=== PATIENT | male | born 1980 | race Caucasian/White ===

== ENCOUNTER 2018-02-03 13:08 | Emergency (ER) | payer SELFPAY ==
[~2018-02-03] VITALS: Ht 175.3 cm; Wt 97.7 kg
[~2018-02-03 13:08] MED LIST: MOTRIN 600600 MG/TAB PO
[2018-02-03 13:15] VITALS: BP 153/111; PULSE 77; TEMP 97.9
[2018-02-03] MEDS ORDERED: CEPHALEXIN500 M1 PO (15:24)
[2018-02-03] MEDS ORDERED: NORCO 325 MG-51 TAB PO (15:47)
== END 2018-02-03 16:35 | disposition home or self-care (01) ==
LOC: COL.ER 13:08
DX: S51.012A Laceration without foreign body of left elbow, initial encounter (principal); F17.210 Nicotine dependence, cigarettes, uncomplicated; Z23 Encounter for immunization; V18.4XXA Pedal cycle driver injured in noncollision transport accident in traffic accident, initial encounter; Y93.55 Activity, bike riding

== ENCOUNTER 2019-07-27 18:46 | Emergency (ER) | payer SELFPAY ==
[~2019-07-27] VITALS: Ht 177.8 cm; Wt 86.4 kg
[~2019-07-27 18:46] MED LIST changes: +CEPHALEXIN500 M1 PO; +NORCO 325 MG-51 TAB PO
[2019-07-27 18:49] VITALS: BP 137/91; TEMP 99.5
[2019-07-27 21:34] VITALS: PULSE 87
== END 2019-07-27 21:36 | disposition home or self-care (01) ==
LOC: COL.ER 18:46
DX: S20.211A Contusion of right front wall of thorax, initial encounter (principal); F17.210 Nicotine dependence, cigarettes, uncomplicated; W10.9XXA Fall (on) (from) unspecified stairs and steps, initial encounter
CPT/HCPCS: J1885

== ENCOUNTER 2022-04-19 00:35 | Observation (INO) | payer SELFPAY ==
[~2022-04-19] VITALS: Ht 175.3 cm; Wt 86.2 kg
[2022-04-19 01:11] LABS: BASO % 0.2 % (0.0-2.0); EOS % 0.1 % (0.0-4.0); GRAN # 15.8 K/mm3 (1.4-6.5); GRAN % 87.3 % (42.2-75.2); HEMATOCRIT 38.1 % (42.0-52.0); HEMOGLOBIN 12.7 g/dl (13.5-18.0); LYMPH % 5.3 % (20.0-51.0); MEAN CELL VOLUME 94 fl (80.0-100.0); MEAN CORPUSCULAR HEMOGLOBIN 31 pg (27-31); MEAN CORPUSCULAR HGB CONC 33 g/dl (33.0-37.0); MEAN PLATELET VOLUME 10.5 fl (7.4-10.4); MONO # 1.2 K/mm3 (0.1-0.6); MONO % 6.5 % (1.7-9.3); PLATELET COUNT 295 K/mm3 (130-400); RED BLOOD COUNT 4.04 M/mm3 (4.20-5.60); REDCELL DISTRIBUTION WIDTH-CV 14.5 % (11.5-14.5)
[2022-04-19 01:35] LABS: ALBUMIN 3.5 gm/dL (3.5-5.0); BILIRUBIN,TOTAL 0.5 mg/dL (0.2-1.2); CALCIUM 8.1 mg/dL (8.4-10.2); CREATININE, serum 2.36 mg/dL (0.72-1.25); POTASSIUM 4.4 mmol/L (3.5-4.5); TOTAL PROTEIN 7.7 gm/dL (6.2-8.1)
[2022-04-19 03:13] LABS: COLLECTION METHOD CLEAN CATCH
[2022-04-19 03:18] LABS: PH 7 (5-8); SQUAMOUS EPITHELIAL None Seen /hpf (0-10); URINE APPEARANCE Clear (CLEAR/HAZY); URINE BACTERIA None Seen /hpf (NONE SEEN); URINE BLOOD Negative (NEGATIVE); URINE COLOR Colorless (YELLOW); URINE GLUCOSE Negative (NEGATIVE); URINE KETONE Negative (NEGATIVE); URINE NITRATE Negative (NEGATIVE); URINE PROTEIN(semi-quant) Negative (NEGATIVE); URINE RBC 0-2 /hpf (0-2); URINE UROBILINOGEN Negative (NEGATIVE)
[2022-04-19 03:34] LABS: TRICYCLIC ANTIDEPRESS URINE NEGATIVE
[2022-04-19 07:53] LABS: CALCIUM 7.6 mg/dL (8.4-10.2); CREATININE, serum 2.26 mg/dL (0.72-1.25); POTASSIUM 4.1 mmol/L (3.5-4.5)
[2022-04-19 08:04] LABS: BASO % 0.2 % (0.0-2.0); EOS % 0.3 % (0.0-4.0); GRAN # 11.3 K/mm3 (1.4-6.5); GRAN % 84.8 % (42.2-75.2); HEMOGLOBIN 11.4 g/dl (13.5-18.0); LYMPH % 7.6 % (20.0-51.0); MEAN CELL VOLUME 94 fl (80.0-100.0); MEAN CORPUSCULAR HEMOGLOBIN 31 pg (27-31); MEAN CORPUSCULAR HGB CONC 33 g/dl (33.0-37.0); MEAN PLATELET VOLUME 10.3 fl (7.4-10.4); MONO # 0.8 K/mm3 (0.1-0.6); MONO % 6.3 % (1.7-9.3); PLATELET COUNT 270 K/mm3 (130-400); REDCELL DISTRIBUTION WIDTH-CV 14.6 % (11.5-14.5)
[2022-04-19 08:05] LABS: HEMATOCRIT 34.9 % (42.0-52.0)
[2022-04-19 08:20] VITALS: BP 134/81; PULSE 82; TEMP 98.5
--- NOTE | 2022-04-19 11:16 | NUR ---
SW met with patient to complete intake and discuss discharge plan. Patient reports that he is homeless and has been staying in a tent since getting out of care home. Patient is independent with his ADL's and does not utilize any DME to assist with mobility and has no oxygen needs. Patient does not have a PCP but states that if he needed any medications "[facility] would be the easiest". Patient does not have a DPOA_HC established. He reports to not being legally . He states his father (Grant Mcneill, ELIJAH) is alive but he has no relationship with him. Patient verbalizes he has a good friend named Mary Crawford ([phone]) that lives in [place] as well. Patient states that he was kicked out of the emergency care home ([facility]) about 5 year's ago and does think he is allowed to go back there. This SW confirmed with [facility] that he is on there do not return list. Patient verbalized that if we were to be able to get him a ride he knows he can get into their care home. Patient also asks if we would be able to get him some clean clothes stating " i know if i put mine on i'll get more sick until i can get them washed". Educated the patient that we can provide a clean set of clothes to him. Discharge plan: Homeless; does endorse to having a tent
[2022-04-19 12:00] VITALS: BP 132/81; PULSE 84; TEMP 97
[2022-04-19 16:13] VITALS: BP 142/82; PULSE 80; TEMP 98.2
--- NOTE | 2022-04-19 18:52 | NUR ---
PT ALERT AND ORIEN X3, VSS, INDEPENDENT, IV NS UP AND RUNNING, COMPLAINS OF NAUSEA ZOFRA GIVEN,
--- NOTE | 2022-04-19 19:30 | NUR ---
Initial shift assessment done- alert/oriented, states pain to left hand 06/18-would like a pain pill- given as ordered, VSS, IV fluids of NS at 125cc/hr, left hand edematous, with redness noted
[2022-04-19 20:00] VITALS: BP 129/80; PULSE 84; TEMP 98.3
[2022-04-20] VITALS (7 sets, daily range): BP systolic 122–152; BP diastolic 72–90; PULSE 62–93; TEMP 97.5–98.8
--- NOTE | 2022-04-20 05:44 | NUR ---
No changes- did sleep in between pain meds- IV fluids remain at 125cc/hr, voiding large amounts of clear yellow urine, VSS, left hand swollen,red,able to move fingers, good CMS, was given roxicodone 5 mg every 4 hrs for hand pain during the shift
--- NOTE | 2022-04-20 08:00 | NUR ---
Patient laying in bed, A&Ox4. VSS. IV CDI. Reports pain and discomfort in left hand. Pain medication given when requested. Independent in the room. Call light within reach
[2022-04-20 08:35] LABS: BASO % 0.4 % (0.0-2.0); EOS # 0.7 K/mm3 (0.0-0.7); EOS % 8.3 % (0.0-4.0); GRAN % 63.6 % (42.2-75.2); HEMATOCRIT 37.4 % (42.0-52.0); HEMOGLOBIN 11.9 g/dl (13.5-18.0); LYMPH # 1.1 K/mm3 (1.2-3.4); MEAN CELL VOLUME 97 fl (80.0-100.0); MEAN CORPUSCULAR HEMOGLOBIN 31 pg (27-31); MEAN CORPUSCULAR HGB CONC 32 g/dl (33.0-37.0); MEAN PLATELET VOLUME 10.6 fl (7.4-10.4); MONO % 12.8 % (1.7-9.3); PLATELET COUNT 263 K/mm3 (130-400); RED BLOOD COUNT 3.84 M/mm3 (4.20-5.60); REDCELL DISTRIBUTION WIDTH-CV 14.2 % (11.5-14.5)
[2022-04-20 08:54] LABS: CALCIUM 8.5 mg/dL (8.4-10.2); CREATININE, serum 1.66 mg/dL (0.72-1.25)
--- NOTE | 2022-04-20 17:28 | NUR ---
Patient had an uneventful day. A&Ox4. VSS. IV CDI. Left hand dressing CDI. Reports pain in hands, pain medication given when requested. Independent in the room. No complaints of nausea. Call light within reach
[2022-04-21 03:44] VITALS: BP 135/87; PULSE 69; TEMP 98.2
[2022-04-21 06:34] LABS: BASO % 0.4 % (0.0-2.0); EOS # 0.6 K/mm3 (0.0-0.7); EOS % 8.9 % (0.0-4.0); GRAN # 4.1 K/mm3 (1.4-6.5); GRAN % 58.6 % (42.2-75.2); HEMOGLOBIN 11.3 g/dl (13.5-18.0); LYMPH # 1.3 K/mm3 (1.2-3.4); LYMPH % 18.4 % (20.0-51.0); MEAN CELL VOLUME 95 fl (80.0-100.0); MEAN CORPUSCULAR HEMOGLOBIN 32 pg (27-31); MEAN CORPUSCULAR HGB CONC 33 g/dl (33.0-37.0); MEAN PLATELET VOLUME 10.9 fl (7.4-10.4); MONO # 0.9 K/mm3 (0.1-0.6); MONO % 12.8 % (1.7-9.3); PLATELET COUNT 252 K/mm3 (130-400); RED BLOOD COUNT 3.59 M/mm3 (4.20-5.60); REDCELL DISTRIBUTION WIDTH-CV 13.6 % (11.5-14.5)
[2022-04-21 06:48] LABS: CALCIUM 8.7 mg/dL (8.4-10.2); CREATININE, serum 1.56 mg/dL (0.72-1.25); POTASSIUM 3.8 mmol/L (3.5-4.5)
[2022-04-21 06:59] LABS: HEMATOCRIT 34.2 % (42.0-52.0)
[2022-04-21 07:23] VITALS: BP 122/71; PULSE 74; TEMP 98.7
--- NOTE | 2022-04-21 09:20 | NUR ---
PT SITTING UP IN BED. MORNING MEDICATIONS GIVEN. SHIFT ASSESSMENT COMPLETED. PT REPORTING PAIN TO L HAND, PAIN MEDICATION GIVEN PER eMAR. DENIES ANY OTHER NEEDS. UPDATED ON POC, PLAN FOR D/C TODAY. WILL CONTINUE TO MONITOR.
--- NOTE | 2022-04-21 09:50 | NUR ---
Initial visit; Patient thanked Certified Rehabilitation Counselor for looking in on him and asking him about himself. Patient was receptive to being added to Certified Rehabilitation Counselor's prayer list. Certified Rehabilitation Counselor will follow up, patient said he is 'somewhat homeless.'
[2022-04-21] MEDS ORDERED: DOXYCYCLINE 10100 MG PO (10:20)
[2022-04-21] MEDS ORDERED: ROXICODONE 55 MG/TAB PO (10:21)
--- NOTE | 2022-04-21 11:13 | NUR ---
D/C IV. DISCHARGE INSTRUCTIONS GIVEN, ALL QUESTIONS ANSWERED. PT BEING ESCORTED OUT WITH [employer]. WILL D/C FROM SYSTEM.
--- NOTE | 2022-04-21 13:12 | NUR ---
Senior Data Warehouse Architect attended clinical rounds and patient is ready for discharge today. Patient would like assistance obtaining a bus ticket to [place] as he wants to get established there. BEULAH purchased a bus ticket for patient for today at 1545 that will leave from the [email or web address] [email or web address]. BEULAH provided bus ticket to patient. BEULAH also contacted [facility] and faxed voucher for discharge medications totaling $25. BEULAH then contacted [employer] to assist patient with transportation as he will need to pick up attendant his medications and also needs to go by his tent to grab his backpack. Jaylon at [employer] arranged for volunteers to pick up attendant patient from hospital and advised they can take patient to his tent, to [facility], and then get him to the bus station [facility]. BEULAH notified patient that the volunteers would arrive shortly. BEULAH provided clean clothes and a hygiene bag.
== END 2022-04-21 11:17 | disposition home or self-care (01) ==
LOC: COL.ER 00:35 → MEDICAL 02:47 → COL.ER 02:47 → MEDICAL 04-21 11:17
PROVIDERS: Nurse Practitioner; Physician Assistant; Student in an Organized Health Care Education/Training Program; ADMIT Internal Medicine
DX: S61.402A Unspecified open wound of left hand, initial encounter (principal); N17.9 Acute kidney failure, unspecified; D64.9 Anemia, unspecified
CPT/HCPCS: 99232-AI; G0378; J0696; J1644; J2405; J3370; J7030; J7050